=== PATIENT | female | born 1965 | race Caucasian/White ===

== ENCOUNTER → 2017-01-29 | Outpatient (CLI) | payer OTHER ==
--- NOTE | 2017-01-29 08:54 | US ---
EXAMINATION TYPE: US abdomen complete DATE OF EXAM: 01/29/2017 COMPARISON: None. CLINICAL HISTORY: 52-year-old female R74.8 Elevated liver enzymes. TECHNIQUE: Multiple sonographic images of the abdomen are obtained. FINDINGS: Liver Length: 14.6 cm Gallbladder Wall: 0.2 cm CBD: 0.4 cm Spleen: 9.6 cm Right Kidney: 11.1 x 5.3 x 4.8 cm Left Kidney: 10.2 x 6.1 x 4.7 cm Pancreas: wnl, tail obscured by bowel gas Liver: Appeared wnl Gallbladder: wnl Evidence for sonographic Bauer's sign: No CBD: wnl Spleen: wnl Right Kidney: No hydronephrosis, lower pole gassed out Left Kidney: No hydronephrosis Upper IVC: wnl Abd Aorta: wnl IMPRESSION: Unremarkable sonographic examination of the abdomen.
== END | disposition home or self-care (01) ==
LOC: RADUSWWP 08:00
PROVIDERS: ATTEND Family Medicine
DX: R74.8 Abnormal levels of other serum enzymes (principal)
CPT/HCPCS: 76700

== ENCOUNTER → 2018-06-25 | Outpatient (CLI) | payer BC ==
--- NOTE | 2018-06-27 09:58 | MM ---
Reason for exam: screening (asymptomatic). Last mammogram was performed 2 years and 4 months ago. History: Family history of breast cancer in paternal cousin. Physical Findings: A clinical breast exam by your physician is recommended on an annual basis and results should be correlated with mammographic findings. MG 3D Screening Mammo W/Cad Bilateral CC and MLO view(s) were taken. Prior study comparison: February 10, 2016, bilateral MG 3d screening mammo w/cad. November 20, 2011, bilateral digital screening mammo w/CAD. The breast tissue is heterogeneously dense. This may lower the sensitivity of mammography. Stable lower inner quadrant global asymmetry on the left. No significant changes when compared with prior studies. ASSESSMENT: Negative, BI-RAD 1 RECOMMENDATION: Routine screening mammogram of both breasts in 1 year.
== END | disposition home or self-care (01) ==
LOC: RADMAMWWP 15:15
PROVIDERS: ATTEND Family Medicine
DX: Z12.31 Encounter for screening mammogram for malignant neoplasm of breast (principal)
CPT/HCPCS: 77063; 77067

== ENCOUNTER → 2019-07-01 | Outpatient (CLI) | payer BC ==
--- NOTE | 2019-07-02 05:20 | CT ---
EXAMINATION TYPE: CT pelvis w con DATE OF EXAM: 07/01/2019 COMPARISON: NONE HISTORY: 54-year-old female Vaginal gas. 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 Delayed images through the bladder and coronal/sagittal reconstructions performed. CT DLP: 807 mGycm Automated exposure control for dose reduction was used. FINDINGS: The uterus is anteverted but retroflexed. Both ovaries are visualized. No abnormal fluid collection i n the pelvis or pelvic lymphadenopathy. Mild to moderate circumferential bladder wall thickening. No intraluminal bladder air. Nonobstructive 2 mm left renal calculus Unable to identify a discrete communication between the rectum and vaginal canal. Small amount of air is present high in the region of the fornices. Left-sided pelvic phleboliths. Moderate stool within the visualized right side of the colon. No pericolonic inflammatory change seen . Bones: No osseous destructive process. IMPRESSION: UNABLE TO IDENTIFY A DISCRETE FISTULOUS COMMUNICATION BETWEEN THE RECTUM AND VAGINAL CANAL ON THIS ST UDY. SMALL AMOUNT OF AIR IS PRESENT HIGH IN THE VAGINA IN THE REGION OF THE FORNICES. FURTHER CLINICA L CORRELATION WILL BE NEEDED IF PERSISTENT CONCERN FOR FISTULA. CIRCUMFERENTIAL BLADDER WALL THICKENING. CORRELATE TO EXCLUDE CYSTITIS.
== END | disposition home or self-care (01) ==
LOC: RADCTMAIN 15:24
PROVIDERS: ATTEND Obstetrics & Gynecology
DX: N32.89 Other specified disorders of bladder (principal)
CPT/HCPCS: 72193; Q9967

== ENCOUNTER → 2019-07-29 | Outpatient (CLI) | payer BC ==
--- NOTE | 2019-07-29 15:24 | US ---
EXAMINATION TYPE: US kidneys/renal and bladder DATE OF EXAM: 07/29/2019 COMPARISON: US abdomen January 29, 2017 CLINICAL HISTORY: N39.0 UTI. Pt states recurrent UTI's EXAM MEASUREMENTS: Right Kidney: 11.3 x 4.4 x 4.9 cm Left Kidney: 9.9 x 5.2 x 5.0 cm Post Void Residual Volume: 27 mL Right Kidney: Appeared wnl, lower pole gassed out Left Kidney: No evidence of hydro, possible nonobstructing renal calculus lower pole= 4mm Bladder: wnl Bilateral Jets seen: Yes Normal Post Void Residual: Yes There is no evidence for hydronephrosis at this point in time. No nephrolithiasis is seen. No nicky s are identified. The urinary bladder is anechoic. Bilateral ureteral jets are seen. Bladder nearly completely emptied on voiding. IMPRESSION: Suboptimal study without hydronephrosis seen bilaterally.
== END | disposition home or self-care (01) ==
LOC: RADUSWWP 14:54
PROVIDERS: ATTEND Family Medicine
DX: N39.0 Urinary tract infection, site not specified (principal)
CPT/HCPCS: 76770

== ENCOUNTER → 2020-03-30 | Outpatient (CLI) | payer BC ==
--- NOTE | 2020-04-01 08:32 | MM ---
Reason for exam: screening (asymptomatic). Last mammogram was performed 1 year and 9 months ago. History: Patient is postmenopausal. Family history of breast cancer in paternal cousin. Physical Findings: A clinical breast exam by your physician is recommended on an annual basis and results should be correlated with mammographic findings. MG 3D Screening Mammo W/Cad Bilateral CC and MLO view(s) were taken. Prior study comparison: June 25, 2018, bilateral MG 3d screening mammo w/cad. February 10, 2016, bilateral MG 3d screening mammo w/cad. The breast tissue is heterogeneously dense. This may lower the sensitivity of mammography. No significant changes when compared with prior studies. ASSESSMENT: Benign, BI-RAD 2 RECOMMENDATION: Routine screening mammogram of both breasts in 1 year.
== END | disposition home or self-care (01) ==
LOC: RADMAMWWP 11:09
PROVIDERS: ATTEND Family Medicine
DX: Z12.31 Encounter for screening mammogram for malignant neoplasm of breast (principal)
CPT/HCPCS: 77063; 77067

== ENCOUNTER → 2020-09-17 | Outpatient (CLI) | payer BC ==
--- NOTE | 2020-09-19 10:43 | ECHOF ---
Referral Reason:R00.2 palpitations MEASUREMENTS -------- HEIGHT: 165.1 cm WEIGHT: 72.6 kg BP: IVSd: 1.0 cm (0.6 - 1.1) LVIDd: 4.4 cm (3.9 - 5.3) LVPWd: 0.9 cm (0.6 - 1.1) IVSs: 1.2 cm LVIDs: 3.6 cm LVPWs: 1.5 cm LAESV Index (A-L): 27.94 ml/m Ao Diam: 3.3 cm (2.0 - 3.7) AV Cusp: 1.9 cm (1.5 - 2.6) MV EXCURSION: 25.705 mm (> 18.000) MV EF SLOPE: 154 mm/s (70 - 150) EPSS: 0.3 cm MV E Ken: 0.74 m/s MV DecT: 145 ms MV A Ken: 0.64 m/s MV E/A Ratio: 1.15 RAP: 5.00 mmHg RVSP: 21.70 mmHg FINDINGS -------- Sinus rhythm. This was a technically good study. LV size, wall thickness and systolic function are normal, with an EF greater than 55%. The left juan tricular size is normal. The right ventricle is normal in size. Normal LA size by volume 22+/-6 ml/m2. The right atrial size is normal. The aortic valve is trileaflet, and appears structurally normal. No aortic stenosis or regurgitation. Mild mitral regurgitation is present. Mild tricuspid regurgitation present. Right ventricular systolic pressure is normal at < 35 mmHg. There is no pulmonic regurgitation present. The aortic root size is normal. There is no pericardial effusion. CONCLUSIONS -------- 1. LV size, wall thickness and systolic function are normal, with an EF greater than 55%. 2. The left ventricular size is normal. 3. The right ventricle is normal in size. 4. Normal LA size by volume 22+/-6 ml/m2. 5. The right atrial size is normal. 6. The aortic valve is trileaflet, and appears structurally normal. No aortic stenosis or regurgitati on. 7. Mild mitral regurgitation is present. 8. Mild tricuspid regurgitation present. 9. There is no pulmonic regurgitation present. 10. The aortic root size is normal. 11. There is no pericardial effusion. CASH ON DELIVERY CLERK: Bere Rojas RDCS
== END | disposition home or self-care (01) ==
LOC: RADECHMAIN 14:04
PROVIDERS: ATTEND Family Medicine
DX: I08.1 Rheumatic disorders of both mitral and tricuspid valves (principal)
CPT/HCPCS: 93306